=== PATIENT | male | born 1985 | race Caucasian/White ===

== ENCOUNTER 2021-01-21 09:15 | Emergency (ER) | payer BC ==
[2021-01-21] MEDS ORDERED: BENADRYL 50MG C50 MG PO (14:31)
[2021-01-21] MEDS ORDERED: PREDNISONE20 MG PO (14:31)
[2021-01-21] MEDS ORDERED: PEPCID20 MG PO (14:31)
== END 2021-01-21 14:40 | disposition home or self-care (01) ==
LOC: ER1 09:15
DX: T78.40XA Allergy, unspecified, initial encounter (principal); L50.0 Allergic urticaria; S30.0XXA Contusion of lower back and pelvis, initial encounter; W19.XXXA Unspecified fall, initial encounter
CPT/HCPCS: 72100; 99283

== ENCOUNTER → 2021-01-29 | Outpatient (CLI) | payer BC ==
[~2021-01-29] MED LIST: BENADRYL 50MG C50 MG PO; PEPCID20 MG PO; PREDNISONE20 MG PO
== END ==
LOC: EMI 14:30
DX: M51.16 Intervertebral disc disorders with radiculopathy, lumbar region (principal); R29.898 Other symptoms and signs involving the musculoskeletal system
CPT/HCPCS: 72148